=== PATIENT | female | born 1975 | race Caucasian/White ===

== ENCOUNTER → 2017-01-16 | Outpatient (CLI) | payer OTHER | LOC: FIMAGING 14:33 | DX: Z12.31 Encounter for screening mammogram for malignant neoplasm of breast (principal) | CPT/HCPCS: G0202 ==

== ENCOUNTER 2017-03-28 05:56 | Day surgery (SDC) | payer OTHER ==
--- NOTE | 2017-03-20 14:47 | GHP ---
[f rep st] PREOP HISTORY AND PHYSICAL SCHEDULED DATE OF SURGERY: March 28, 2017 at 7:15 a.m. SURGERY TO BE PERFORMED: Hysteroscopy, dilation and curettage, polypectomy with morcellator and Venecia endometrial ablation. SURGEON: Valentina Everett MD. PREOPERATIVE DIAGNOSES: Menometrorrhagia and endometrial polyps. HISTORY OF PRESENT ILLNESS: The patient is a 41-year-old 1, para 1-0-0- 1, with a longstanding history of menometrorrhagia, which has been getting worse over the past 6 to 7 months. She originally presented in May of 2016 complaining of increased menstrual irregularities and had an ultrasound at that time that revealed a hyperechoic mass in her endometrium that was a possible polyp. She was given treatment options at that time, options of surgical management versus medical management. The patient had a lot of stress in her life, at that point, a recent in the family, as well as her own MS exacerbation, so she monitored her periods over the last several months. In January, she did follow up and is continuing to have really heavy cycles, soaking 7 to 8 super tampons and pads everyday, passing tissue and clots, and having significant cramping. Repeat ultrasound again revealed 2 small subserosal fibroids and a large endometrial polyp in the endometrium, which was 1.7 x 1.3 x 1.4 cm hypoechoic mass with a feeder vessel. Ovaries were normal. The patient, again, was given treatment options of medical management versus surgical management. The patient wishes to have surgery. She has had significant menstrual problems all of her life and desires to have a polypectomy , as well as an endometrial ablation for treatment. PAST OBSTETRICAL HISTORY: She has 1 full-term spontaneous vaginal delivery, baby named Fox, 8 pounds 1 ounce, without complications, and that is her only . PAST MEDICAL HISTORY: Significant for multiple sclerosis, as well as Jono' s thyroiditis. She has a longstanding history of Jono's, but was diagnosed with MS after the of her 6-year-old. She is followed by Rheumatology and has had exacerbations over the last year needing medication changes. Most recently, she is on rituximab 1000 mg IV infusion every 6 months and it has helped her symptoms. She does not have any obvious deficits from her MS. Jono's thyroiditis - she is managed with nature thyroid and that has been stable for a long period. PAST SURGICAL HISTORY: She has a history of ear tubes and adenoids as a child, a left ganglion cyst removal in 2001, and that is her only significant surgery. ALLERGIES: She has no known drug allergies her. CURRENT MEDICATIONS: Rituximab 1000 mg IV infusion every 6 months, nature thyroid 1.5 grams q. day, multivitamins, [place] 3, vitamin D, vitamin B complex, L-carnitine, and glutathione supplements. SOCIAL HISTORY: She lives with her and her son, Fox. She works as a teacher in the [employer]. She denies tobacco, has moderate alcohol use 2 times a week and no drug use. FAMILY HISTORY: Her mother recently in 2014. She has a family history of clots in her mother and a sister, and her paternal grandmother of breast cancer. Mother had throat cancer, that is her only significant family history. OBJECTIVE: VITAL SIGNS: Today, blood pressure is 100/56, weight is 124 pounds. GENERAL: She is a well-developed, well-nourished white female, in no acute distress. LUNGS: Clear to auscultation bilaterally. HEART: Regular rate and rhythm. No murmurs. ABDOMEN: Soft, nontender, nondistended. Normal bowel sounds. PELVIC: Normal external genitalia, normal paracervix. Uterus was anteverted, anteflexed, mobile, not enlarged. No adnexal masses, and ultrasound results are as above. ASSESSMENT AND PLAN: A 41-year-old 1, para 1-0-0-1, with a longstanding history of menometrorrhagia and a newly discovered endometrial polyp, desires a hysteroscopy, D and C, polypectomy with morcellator and Venecia endometrial ablation. The patient was consented for the procedure today. She understood the risks and benefits, including bleeding, infection, damage to the uterus, including possible risk of perforation, damage to other organs, if perforation occurs, risk of incomplete treatment of the bleeding and need for additional procedures. She understood these risks and benefits and agreed to proceed. /[id number]/MODL MTDD
[2017-03-28] MEDS ORDERED: LIDOCAINE 1% 5 ML SDV ONE (06:33)
[2017-03-28] MEDS ORDERED: fentaNYL 100 MCG/2 ML INJ ONE ×2 (06:59→08:46)
[2017-03-28] MEDS ORDERED: PROPOFOL 200 MG/20 ML VIAL ONE (06:59)
[2017-03-28] MEDS ORDERED: ceFAZolin 2 GM/DEXTROSE 100 ML IV ONE (07:00)
[2017-03-28] MEDS ORDERED: LIDOCAINE 2% 5 ML SDV ONE (07:01)
[2017-03-28] MEDS ORDERED: MIDAZOLAM 2 MG/2 ML VIAL ONE (07:07)
[2017-03-28 07:14] LABS: % IMMATURE GRANULYOCYTES 0.3 % (0.0-1.1); ABSOLUTE IMMATURE GRANULOCYTES 0.01 10^3/uL (0.00-0.10); ADD DIFF? NO; ADD MORPH? NO; ADD SCAN? NO; ATYPICAL LYMPHOCYTE FLAG 0 (0-99); FRAGMENT RBC FLAG 0 (0-99); HEMATOCRIT 38.9 % (38.0-47.0); HEMOGLOBIN 13.1 g/dL (12.6-16.3); LEFT SHIFT FLG 0 (0-99); LIPEMIA HEMOLYSIS FLAG 80 (0-99); MEAN CELL HEMOGLOBIN 29.1 pg (27.9-34.1); MEAN CELL HEMOGLOBIN CONCENTR. 33.7 g/dL (32.4-36.7); MEAN CELL VOLUME 86.4 fL (81.5-99.8); MEAN PLATELET VOLUME 10.3 fL (8.7-11.7); PLATELET CLUMPS FLAG 0 (0-99); PLATELET COUNT 260 10^3/uL (150-400); RED CELL DISTRIBUTION WIDTH 13.1 % (11.5-15.2)
[2017-03-28] MEDS ORDERED: epHEDrine SULFATE 10 MG/ML SYR ONE (07:37)
[2017-03-28] MEDS ORDERED: SILVER NITRATE APPLICATOR 1 APPL TP ONE (07:43)
[2017-03-28] MEDS ORDERED: KETOROLAC 30 MG/1 ML SDV ONE (08:17)
[2017-03-28] MEDS ORDERED: HYDROCODONE/APAP 5/325 TAB ONE ×2 (08:46→09:21)
[2017-03-28] MEDS ORDERED: HYDROmorphONE/DILAUDID 2 MG/ML INJ ONE (09:40)
--- NOTE | 2017-03-28 12:11 | GOP ---
[f rep st] OPERATIVE REPORT DATE OF OPERATION: 03/28/2017 SURGEON: Valentina Everett MD ANESTHESIA: General. ANESTHESIOLOGIST: Dr. Damien Simmons. PREOPERATIVE DIAGNOSIS: Menometrorrhagia and endometrial polyp. POSTOPERATIVE DIAGNOSIS: Menometrorrhagia and endometrial polyp. PROCEDURE PERFORMED: Hysteroscopy, dilation and curettage, polypectomy with morcellator, and Minerv a endometrial ablation. FINDINGS: SPECIMENS: The pathologic specimen will be endometrial polyp and endometrial curettings. ESTIMATED BLOOD LOSS: Less than 20 cc. INDICATIONS: The patient is a 41-year-old, 1, para 1-0-0-1, with a longstanding history of menometrorrhagia which has been getting worse over the past 6-7 months. She presented in May, complaining of increased menstrual irregularities and had an ultrasound at that time which revea led a hypoechoic mass in the endometrium, possible polyp. She was given treatment options at that t arabella, including surgical management versus medical management. She declined management at that time due to increased stress in her life and also her own MS exacerbation. She monitors her periods over the last several months and followed up in January. She began having heavy cycles soaking 7-8 super tampons every day, clots and tissue, and having significant cramping. Repeat ultrasound revealed a large endometrial polyp which was a 1.7 x 1.3 x 1.4 cm hypoechoic mass with feeder vessels. Ovaries were normal. Other pathology was normal. We again reviewed treatment options and this time maryam zurita was ready to have surgical management with a polypectomy. We discussed the pro's and con's of hola espinoza and also adding the endometrial ablation to prevent future polyps and to help her have possibly have improvement in her periods overall until she goes through menopause, and patient is in agreeme nt with this. Because her ultrasound was normal other than the polyps, and because she has no other risk factors for endometrial malignancy, we opted to proceed with proceed with the procedure, inclu ding the endometrial ablation, knowing that if the endometrial curettings or the polyp shows maligna nt features, she will need a hysterectomy. The patient was consented for the procedure. She unders tood the risks and benefits. The risks including bleeding, infection, damage to uterus including po ssible risk of perforation, damage to other organs if perforation were to occur, electrolyte imbalan ce, need for additional procedures, and incomplete treatment of all of her menometrorrhagia. She un derstood these risks and benefits and agreed to proceed. DESCRIPTION OF PROCEDURE: The patient was taken to the operating room, where she was given general anesthesia without difficulty. She was prepped and draped in the dorsal lithotomy position and her bladder had previously just been emptied. After a WHO time-out was performed, an open-sided speculu m was placed in vagina and a Subramanian tenaculum was used to grasp the anterior lip of the cervix. The uterus sounded to 9 cm. The cervix was then progressively dilated with Hegar dilators to a #5. Th e TruClear scope was then gently inserted through the cervix and advanced to the fundus, and visuali zation of the endometrial cavity was performed. With visualization, there were 2 large polyps in th e posterior wall of the of the uterus and the thickened tissue throughout the uterus. Both tubal os tia were visualized. The polyp blade morcellator was then advanced through the operative channel. Window lap was performed and the polyps and thickened tissue were morcellated with direct visualizat ion without difficulty. The cavity was then seen to be clear. Both tubal ostia were visualized wit hout difficulty. There were no other abnormalities in the cavity. The hysteroscope was removed. T he cervix was then dilated to a #8 and the cervical length was measured to be 3 cm, giving a uterine cavity length of 6 cm. The Venecia device was then was then advanced to the fundus and pulled back . The balloon was applied, the cavity assessments were passed, and the endometrial ablation took pl gillian over 120 seconds without any difficulty. The device was then removed and the final look with th e hysteroscope revealed a good, charred look of the endometrium and no other abnormalities. The ten aculum was removed, there was no bleeding at the cervix, and the speculum was removed. Sponge, lap, needle, and instrument counts were correct x2. The patient went to the recovery room in good condi tion. FLUIDS REPLACED: 600 cc. URINE OUTPUT: None measured. FLUID DEFICIT: 120 cc. /[id number]/MODL
== END 2017-03-28 10:27 | disposition home or self-care (01) ==
LOC: FSGY 05:56
PROVIDERS: ATTEND Obstetrics & Gynecology
DX: N92.0 Excessive and frequent menstruation with regular cycle (principal); N84.0 Polyp of corpus uteri; G35 Multiple sclerosis
CPT/HCPCS: 58563; C1782; J0690; J1170; J1885; J2250; J2704; J3010

== ENCOUNTER → 2018-06-25 | Outpatient (CLI) | payer OTHER | LOC: FIMAGING 13:40 | PROVIDERS: ATTEND Obstetrics & Gynecology | DX: N60.02 Solitary cyst of left breast (principal) ==

== ENCOUNTER → 2018-11-11 | Outpatient (CLI) | payer OTHER | LOC: CIMAGING 16:37 | PROVIDERS: ATTEND Family Medicine | DX: J40 Bronchitis, not specified as acute or chronic (principal) | CPT/HCPCS: 71046-PO ==